=== PATIENT | female | born 1990 | race Caucasian/White ===

== ENCOUNTER 2022-08-23 16:48 | Outpatient (CLI) | payer OTHER, SELFPAY ==
--- NOTE | 2022-08-23 17:00 | CRLHL7_ITS ---
For Patients: As a result of the Cures Act, medical imaging exams and procedure reports are released immediately into your electronic medical record. You may view this report before your referring provider. If you have questions, please contact your health care provider. INDICATION: First trimester scan, establish dates. COMPARISON: None. TECHNIQUE: Real-time santos-scale imaging of the pelvis was performed. FINDINGS: Sonographic imaging demonstrates a single living intrauterine gestation. The embryo demonstrates a regular cardiac rate measuring 176 beats per minute. The embryo`s crown-rump length measurement of 2.7 cm corresponds to a gestational age of 9 weeks 4 days with a sonographic due date of March 24, 2023. There is a normal-appearing yolk sac measuring 4.1 mm. There are no gross abnormalities noted within the embryo at this early state of development. The placenta has not yet developed. The gestational sac has a normal appearance and there is no evidence of a perigestational hemorrhage. The amount of fluid within the sac appears appropriate for gestational age. The cervix is closed. The myometrium appears normal. The ovaries are of normal size. The right ovary measures 2.7 x 1.7 x 1.7 cm and the left ovary measures 4.8 x 3.2 x 3.4 cm. Single corpus luteum cyst of in the left ovary measuring 3.2 x 2.6 x 2.7 cm. There are no suspicious fluid collections noted in the cul-de-sac. IMPRESSION: Normal first trimester OB ultrasound exam. Gestational age calculated at 9 weeks 4 days with a sonographic due date of March 24, 2023. Dictated by Varghese Pop MD @ 08/23/2022 5:40:37 PM (Electronically Signed)
== END 2022-08-23 16:49 | disposition home or self-care (01) ==
LOC: US 16:49
PROVIDERS: PCP Nurse Practitioner Family; Visit Provider Physician Assistant
DX: Z34.91 Encounter for supervision of normal pregnancy, unspecified, first trimester (principal); Z3A.09 9 weeks gestation of pregnancy
CPT/HCPCS: 76817; 87491; 87591

== ENCOUNTER 2022-11-08 12:15 | Outpatient (CLI) | payer OTHER, SELFPAY ==
--- NOTE | 2022-11-08 12:15 | CRLHL7_ITS ---
For Patients: As a result of the Century Cures Act, medical imaging exams and procedure reports are released immediately into your electronic medical record. You may view this report before your referring provider. If you have questions, please contact your health care provider. OBSTETRICAL ULTRASOUND, 11/08/2022 VANESSA by LMP: 03/27/2023. GA: 20 w, 1 d. INDICATION: anatomy survey. FINDINGS: Cervix: Visualized. Technique: Transvaginal. Length of closed cervix: 4.4 cm. Placenta/cord: Anterior. Placenta tip to internal OS: 0.7 cm. Umbilical Cord: 3-vessel cord. Placenta insertion: Central. Amniotic Fluid: 4.9 cm SDP (greater than/equal to: 2- less than 8 cm). The placental edge is 0.7 cm from the internal os. SURVEY: Observed Structures Cerebellum: 2.1 cm, 21 w 0 d. Cisterna Magna: 6.4 mm. Nuchal Fold: 4.0 mm. Lateral Ventricle: 6.3 mm. CSP: Yes. Midline Falx: Yes. Choroid Plexus: Yes. Spine: Yes. Abdomen: Stomach: Yes. Abd Cord Insertion: Yes. Urinary Bladder: Yes. Kidneys: Yes. Diaphragm: Yes. Face: Nose/lips: Yes. Orbital view: Yes. Profile: Yes. Extremities: yes Vascular: Four-Chamber Heart: Yes. LVOT: Yes. RVOT: Yes. BPD: 4.8 cm. 20 w 3 d, 64 percent. HC: 18.1 cm. 20 w 3 d, 58 percent. AC: 15.2 cm. 20 w 3 d, 53 percent. FL: 32 cm. 20 w 0 d, 37 percent. FL/AC: 21 percent. HC/AC Ratio: 1.19. Heart rate: 142 beats per minute. age by this US: 20 w 3 d. VANESSA by this US: 03/25/2023. EFW: 342 g. Weight: 0 lbs, 12 oz. Percentile by VANESSA: 52 percent. IMPRESSION: 1. Single live intrauterine gestation. No gross anomalies visualized. 2. Low lying placenta. Rosa Isela Medina M.D. Diagnostic/Breast Radiologist [employer] [email or web address] Transcribed: 10:54 a.m. JR/Dictated by: Rosa Isela Medina MD @ 11/09/2022 6:58:00 AM (Electronically Signed)
== END 2022-11-08 12:16 | disposition home or self-care (01) ==
LOC: US 12:16
PROVIDERS: PCP Nurse Practitioner Family; Visit Provider Registered Nurse
DX: Z34.92 Encounter for supervision of normal pregnancy, unspecified, second trimester (principal); O44.42 Low lying placenta NOS or without hemorrhage, second trimester; Z3A.20 20 weeks gestation of pregnancy
CPT/HCPCS: 76805

== ENCOUNTER 2023-01-02 12:01 | Outpatient (CLI) | payer OTHER, SELFPAY ==
--- NOTE | 2023-01-02 12:15 | CRLHL7_ITS ---
For Patients: As a result of the Century Cures Act, medical imaging exams and procedure reports are released immediately into your electronic medical record. You may view this report before your referring provider. If you have questions, please contact your health care provider. INDICATION: Follow-up low lying placenta COMPARISON: 11/08/2022 TECHNIQUE: Real time santos scale imaging of the fetus was performed. FINDINGS: Transabdominal imaging: Sonographic imaging demonstrates a single living intrauterine gestation. Fetus demonstrates a regular cardiac rate of 148 beats per minute. Fetus has a vertex position. The placenta lies anteriorly without evidence of placenta previa. Amniotic fluid volume appears normal and there is a single deepest vertical pocket: 8.5 cm. LISSETTE 19.6 cm. Transvaginal imaging: Cervix is closed and measures 4.1 cm. Anterior placenta edge located 3.9 cm from the internal cervical os. IMPRESSION: No evidence of previa. Normal position of the anterior placenta. Dictated by Carson Walker MD @ 01/02/2023 3:04:48 PM (Electronically Signed)
== END 2023-01-02 12:02 | disposition home or self-care (01) ==
PROVIDERS: PCP Nurse Practitioner Family; Visit Provider Obstetrics & Gynecology
DX: O44.42 Low lying placenta NOS or without hemorrhage, second trimester (principal)
CPT/HCPCS: 76816; 76817; 86592

== ENCOUNTER 2023-03-01 13:34 | Outpatient (CLI) | payer OTHER, SELFPAY ==
[2023-03-02 12:28] LABS: Strep B DNA Probe Negative (Negative); Strep B Susceptibility Needed? No
== END 2023-03-01 13:35 | disposition home or self-care (01) ==
LOC: NFLDREF 13:35
PROVIDERS: PCP Nurse Practitioner Family; Visit Provider Registered Nurse
DX: Z34.93 Encounter for supervision of normal pregnancy, unspecified, third trimester (principal); Z3A.36 36 weeks gestation of pregnancy
CPT/HCPCS: 87081; 87653

== ENCOUNTER 2023-03-19 15:58 | Inpatient (IN) | payer OTHER, SELFPAY ==
[2023-03-19 16:17] VITALS: BP 122/84; PULSE 100; PULSE 99; O2SAT 98
[2023-03-19 16:23] VITALS: RESP 16; TEMP 36.8
[2023-03-19 17:58] LABS: Basophils Absolute Auto 0.01 K/uL (0.00-0.30); Basophils Percent Auto 0.1 % (0.0-3.0); Eosinophils Absolute Auto 0.03 K/uL (0.00-0.50); Eosinophils Percent Auto 0.3 % (0.0-7.0); Hematocrit 33.7 % (33.0-51.0); Hemoglobin* 11.5 gm/dL (12.0-16.0); Immature Granulocytes Abs Auto 0.09 K/uL (0.00-0.30); Lymphocytes Absolute Auto 1.88 K/uL (0.90-2.90); Lymphocytes Percent Auto 21.1 % (20-44); Mean Corpuscular HGB Conc 34 gm/dL (32-36); Mean Corpuscular Hemoglobin 32 pg (26-34); Mean Corpuscular Volume 94 fL (80-100); Neutrophils Percent Auto 72.5 % (42.0-72.0); Platelet Count* 227 K/uL (140-440); RDW Coefficient of Variation % 11.7 % (11.5-15.5); Red Blood Count 3.58 m/uL (4.00-5.20); Slide Review Reflex No; White Blood Count* 8.93 K/uL (4.50-11.00)
[2023-03-19] MEDS: LACTATED RINGERS 1000 ML 1,000 ML IV (18:05)
[2023-03-19 18:30] VITALS: BMI 26.0
--- NOTE | 2023-03-19 18:46 | P.LDBA_ITS ---
Subjective History of Present Illness Date Seen: 03/19/23 Narrative: Patient is being admitted to Labor and Delivery for elective IOL. She is a 32 year old at 38 6/7 weeks gestation. Her full history and physical was dictated by Dr. Salvador on 03/07/23. Please see this for details. Specific Issues/Plans Maternity T21: negative 1. Generalized anxiety disorder with panic. Buspirone 10 mg b.i.d. Lexapro 10 mg and hydroxyzine p.r.n. initiated 07/26/2022. Did not tolerate hydroxyzine. 2. Under weight, pre BMI 18.0 Appropriate weight gain throughout 3. Low-lying placenta, 0.7 cm placental tip to internal os - RESOLVED on 28 week scan Flu: received Tdap: 01/17 RSV: 02/01 H&P: 03/07/[address] Salvador OB - Problem Based A/P Additional Plan (1) Elective induction of labor planned: Status: Acute Plan 1. IOL started tonight, plan was to utilize misoprostol, due to concerns with tracing recommended placement of cook catheter and patient agreed. This was placed with 60mL on each balloon. Patient tolerated procedure well. If able plan will be to start IV oxytocin later tonight. 2. IVFs started due to tracing showing minimal variability and episodes of variable decelerations, currently improved. Will keep close monitoring. 3. GBS negative no need for antibiotic prophylaxis. 4. Discussed pain management options overnight, patient is interested. Otherwise planning epidural. 5. Dr. Salvador will be updated, and will take over in am. OB Exam Physical Exam Vital signs: Temp Pulse Resp BP Pulse Ox 98.3 F 100 16 122/84 98 03/19/23 16:23 03/19/23 16:17 03/19/23 16:23 03/19/23 16:17 03/19/23 16:17 Detailed Labor and Delivery Exam Patient Gravid: Yes Dilation (cm): 1 Effacement (%): 60 Cervix position: mid Consistency: soft Tachysystole: No Contraction intensity: Mild Comments: Uterine irritability Fetus (Single) Station: -3 Amniotic Membrane Status: intact Heart Rate Baseline: 150 Monitor Accelerations: Present Monitor Decelerations: Variable Tin Pot Operator Variability: Moderate (6-25) (Upon admission variability minimal, with episodes of variable decelerations.)
[2023-03-19 19:28] VITALS: BP 124/81; PULSE 73; PULSE 74; RESP 16; TEMP 36.4; O2SAT 99
[2023-03-19 22:24] LABS: Amnisure Rom* Negative
[2023-03-19] MEDS: LACTATED RINGERS 1000 ML 1,000 ML 125 ML IV (22:43)
[2023-03-19 22:45] VITALS: BP 108/61; PULSE 68
[2023-03-19] MEDS: MORPHINE 10 MG/ML inj IM (23:16)
[2023-03-19] MEDS: hydrOXYzine pamoate 25 MG CAPSULE 100 MG PO (23:17)
[2023-03-20] VITALS (78 sets, daily range): BP systolic 104–136; BP diastolic 56–86; PULSE 68–115; RESP 12–16; TEMP 36.6–38.1; O2SAT 96–99
[2023-03-20] MEDS: LACTATED RINGERS 1000 ML 1,000 ML 125 ML IV (03:57)
[2023-03-20] MEDS: OXYTOCIN 30 unit/500 ML in NS 30 UNIT/500 ML BAG IVPB (06:50)
--- NOTE | 2023-03-20 07:41 | P.OBPN_ITS ---
Subjective Time Seen by Provider: 07:30 Date Seen: 03/20/23 Narrative: Sonam is resting comfortably in bed. She is sleepy as she did not get any rest last night due to position changes for resuscitation. NST reviewed from overnight. Upon admission, NST was noted to have multiple va riable decelerations and minimal variability. resuscitation was assessed sedated prior to induction of labor. She was repositioned and given an IV bolus. Improvement in NST noted. Decision was made to begin the cervical ripening process with cook catheter instead of misoprostol due to decelerations. Overnight, NST continues to have intermittent variable decelerations and periods of minimal variability. Some of variables were deep, down to the 60s. At 0327, there was a prolonged 3.5 minutes deceleration down to the 60s. Repositioning and IV bolus given at that time with recovery. Given this, pitocin was unable to be started overnight. Cook cath was removed at 0630 and cervical exam per RN was 3.5/80/-3. Pitocin was able to be started at 0650. Sonam reports that she note her contractions but they're not frequent or strong. Discuss with her that the plan is to continue titrating pitocin to get her to contract adequately to make cervical change. I will assess for appropriateness of AROM after 2-3 hours on pitocin. She understands and agrees with the plan of care. NST currently: 120s bpm,moderate variability, +accel, intermittent variables. Objective Vital Signs: Last Vital Signs Temp 98.5 F 03/20/23 07:28 Pulse 86 03/20/23 07:28 Resp 16 03/20/23 07:28 BP 116/74 03/20/23 07:28 Pulse Ox 96 03/20/23 03:32 Contractions Contraction intensity: Mild Assessment Station: -3 Heart Rate Baseline: 150 Monitor Accelerations: Present Monitor Decelerations: Variable
--- NOTE | 2023-03-20 10:27 | P.OBPN_ITS ---
Subjective Time Seen by Provider: 09:45 Date Seen: 03/20/23 Objective Vital Signs: Last Vital Signs Temp 98.5 F 03/20/23 09:57 Pulse 77 03/20/23 09:53 Resp 16 03/20/23 09:57 BP 120/77 03/20/23 09:53 Pulse Ox 96 03/20/23 03:32 Pelvic Exam Dilation (cm): 3.5 Effacement (%): 75 Station: ballotable Contractions Contraction intensity: Mild Assessment Assessment: induction ongoing Station: -4 Status: Category ll Heart Rate Baseline: 150 Virtualization Consultant Variability: Moderate (6-25) Monitor Accelerations: Present Monitor Decelerations: Variable Plan Plan: - Unable to AROM as head was ballotable. Will continue to titrate pitocin and reassess in 3-4 hours.
[2023-03-20] MEDS: BUSPIRONE 10 MG TABLET 5 MG PO ×2 (10:36→19:58)
[2023-03-20] MEDS: ESCITALOPRAM 10 MG TABLET PO (10:37)
[2023-03-20] MEDS: LACTATED RINGERS 1000 ML 1,000 ML 1200 ML IV ×2 (11:59→12:48)
[2023-03-20] MEDS: ROPIVACAINE 0.2% 100 ml 100 ML 12 MG EPIDURAL ×2 (12:44→19:23)
[2023-03-20] MEDS: LIDOCAINE 2% (PF) 5 ML VIAL EPIDURAL ×2 (12:44→19:24)
--- NOTE | 2023-03-20 12:50 | P.ANBPRC_ITS ---
PFSH PFS Surgical History History of wisdom tooth extraction ?K08.409 - Partial loss of teeth, unspecified cause, unspecified class (ICD- 10) History of removal of skin mole ?Z98.890 - Other specified postprocedural states (ICD-10) ?Z87.2 - Personal history of diseases of the skin and subcutaneous tissue (ICD-10) Family History Maternal Grandfather Coronary artery disease High blood pressure High cholesterol Diabetes Maternal Grandmother Thyroid disease High cholesterol Other Family history of anxiety disorder Family history of depression Social History What is your current living situation?: I presently have a place to live Problems where you live: no known problems In the past 12 months, utilities in danger of being shut off: no In past 12 months, lack of transportation kept you from medical appts, meetings, work, or getting things needed for daily living: no In the past 12 mos, have been you worried that your food would run out before you had money to buy more?: never true In the past 12 mos, the food you bought just didn't last and you didn't have money to buy more?: never true Smoking Status: Never smoker How often does anyone, including family, friends and others, physically hurt you : never How often does anyone, including family, friends and others, insult or talk down to you: never How often does anyone, including family, friends and others, threaten you with harm: never How often does anyone, including family, friends and others, scream or curse at you: never Little interest or pleasure in doing things: not at all Feeling down, depressed, or hopeless: several days Meds Home Medications and Allergies Home Medications Medication Instructions Recorded Confirmed Type docosahexaenoic acid 200 mg 200 mg PO DAILY 11/08/22 03/19/23 History capsule ( DHA) magnesium 1 tab PO DAILY 03/19/23 03/19/23 History Allergies Allergy/AdvReac Type Severity Reaction Status Date / Time almond oil Allergy Severe Rash Verified 03/19/23 16:54 coconut oil Allergy Severe Rash Verified 03/19/23 16:54 Penicillins Allergy Rash Verified 03/19/23 16:54 Results Labs Labs: Laboratory Results - last 24 hr 03/19/23 03/19/23 17:52 22:05 WBC 8.93 RBC 3.58 L Hgb 11.5 L Hct 33.7 MCV 94 MCH 32 MCHC 34 RDW Coeff of Tom 11.7 Plt Count 227 Neut % (Auto) 72.5 H Lymph % (Auto) 21.1 [place]ockley % (Auto) 5.0 Eos % (Auto) 0.3 Baso % (Auto) 0.1 Neut # (Auto) 6.50 Lymph # (Auto) 1.88 [place] # (Auto) 0.40 Eos # (Auto) 0.03 Baso # (Auto) 0.01 Abs Immat Gran (auto) 0.09 Imm/Tot Granulo (auto) 1.0 Membrane Rupture Negative Blood Type A Positive Antibody Screen NEGATIVE Vital Signs Vital Signs: Last Vital Signs Temp 98.6 F 03/20/23 11:32 Pulse 78 03/20/23 12:49 Resp 16 03/20/23 11:32 BP 117/61 03/20/23 12:49 Pulse Ox 98 03/20/23 12:38 Weight: 73.255 kg Height: 167.64 cm Anesthesia Procedures Epidural Insertion Patient Location: OB Start Time: 12:30 Stop Time: 13:00 Start Date: 03/20/23 Stop Date: 03/20/23 Reason for Block: primary anesthetic Patient Position: sitting Performed By: Sung Elise Preanesthetic Checklist: IV checked, risks and benefits discussed, surgical consent, monitors and equipment checked, pre-op evaluation, timeout performed a nd anesthesia consent Prep: chlorhexidine gluconate Monitoring: blood pressure monitoring, sales agent casualty insurance, continuous pulse oximetry and heart rate Approach: midline Vertebral Space: lumbar (1-5) Needle Type: Tuohy needle Injection Technique: continuous catheter (catheter) Needle gauge: 17 Needle Length (cm): 10 cm Needle Insertion Depth (cm): 5 Catheter Gauge: 19 Catheter Type: multi-orifice Catheter at skin depth (cm): 10 Test Dose Result: negative and lidocaine 1.5% with epinephrine 1 to 200,000
--- NOTE | 2023-03-20 19:25 | P.OBPN_ITS ---
Subjective Time Seen by Provider: 19:25 Date Seen: 03/20/23 Objective Vital Signs: Last Vital Signs Temp 99.1 F 03/20/23 17:24 Pulse 90 03/20/23 19:19 Resp 16 03/20/23 17:24 BP 107/59 L 03/20/23 19:19 Pulse Ox 98 03/20/23 19:20 Pelvic Exam Dilation (cm): 6 Effacement (%): 90 Station: -1 Contractions Monitor mode: Internal Contraction Frequency: Q2 minutes Contraction pattern: Regular Contraction intensity: Strong/Firm Assessment Assessment: active labor Station: -1 Amniotic Membrane Status: AROM (1330. Copious amount of clear fluid ) Status: Category ll Heart Rate Baseline: 150 Halfway Variability: Moderate (6-25) Monitor Accelerations: Present Monitor Decelerations: Variable Plan Plan: Throughout the day, strip had been category I. Continued to be Cat I even after AROM at 1330. At 1745 there were more recurrent variables and variability decreased. She was repositioned and given IV fluid bolus. The variables were progressively deeper so pitocin was halved and eventually turned off. She was internalized at 1910. She was 5/90/-1 with rapid change to 6/90/-1 after I completed placing the internals. Sonam was having significant more pain so anesthesia was called to reassess her epidural. Variables resolved with cessation of pitocin. Will keep pitocin off until pain is better controlled and NST is more reassuring.
[2023-03-20] MEDS: LACTATED RINGERS 1000 ML 1,000 ML 1025 ML IV (19:56)
[2023-03-20] MEDS: fentaNYL 100 MCG/2 ML inj EPIDURAL (20:52)
--- NOTE | 2023-03-20 22:25 | PC.NURSE ---
RN reported elevated temp to . to order 24 hours of antibiotics. Will start as soon as available.
[2023-03-20] MEDS: CEFAZOLIN 2 GM in 0.9 % SODIUM CHLORIDE Mini-bag 100 ML IVPB (22:47)
--- NOTE | 2023-03-20 23:03 | W.PM.VAGDEL1 ---
Procedure Delivery date: 03/20/23 Procedure Done: Global Procedure Details: Sonam is a 32 year-old now P1 admitted on 03/19/2023 at 38 Weeks, 6 Days gestation for elective induction of labor. She underwent cervical ripening with cook catheter. AROM occurred at 1330 on 03/20/23 with copious amount of clear fluid. Labor Analgesia: Epidural Pitocin: Yes Labor onset: 03/20/2023 at 1911. Complete: 03/20/2023 at 2110. Pushin03/20/2023 at 2118. heart tones during second stage were: Cat II with deep variables to the 70-60s with pushing. Spontaneous recovery after contraction with moderate variability in between contractions. Excellent descent with maternal efforts. At 2142 a viable male infant delivered in vertex AO presentation over intact perineum via spontaneous vaginal delivery. The was placed on maternal abdomen. Cord was clamped and cut immediately for resuscitation. Nose and mouth were bulb suctioned. weight pending. 7 at 1 minute and 9 at 5 minutes. Shoulder dystocia: No. Nuchal cord: x4. Easily reduced after delivery. Placenta delivered spontaneously and complete at 2146 with a 3 vessel cord. Laceration(s): Left labia - hemostatic nor repair needed. No perineal lacerations. Blood loss: 50 mL. Blood loss measurement type: Estimated Sponge and needles counts are correct. Specimen: none Cord gases obtained due to deep variables during the second stage of labor and nuchal cord x 4. Mother and infant were stable after delivery. Infant's name: Neftaly (STAR) The patient is planning on breast feeding.
[2023-03-20] MEDS: GENTAMICIN 325 MG in 0.9 % SODIUM CHLORIDE 100 ml 100 ML 108.13 MG IVPB (23:54)
[2023-03-21] VITALS (9 sets, daily range): BP systolic 98–128; BP diastolic 65–79; PULSE 72–99; RESP 16–18; TEMP 36.3–37.3; O2SAT 96–99
[2023-03-21] MEDS: IBUPROFEN 600 MG TABLET PO ×3 (01:12→14:39)
[2023-03-21 06:21] LABS: Hemoglobin* 10.9 gm/dL (12.0-16.0)
[2023-03-21] MEDS: CEFAZOLIN 2 GM in 0.9 % SODIUM CHLORIDE Mini-bag 100 ML IVPB ×3 (06:48→22:33)
[2023-03-21] MEDS: DOCUSATE SODIUM 100 MG CAPSULE PO (07:33)
[2023-03-21] MEDS: SODIUM CHLORIDE 0.9 % (FLUSH) 10 ML SYRINGE IVF ×3 (07:34→15:18)
--- NOTE | 2023-03-21 07:45 | PM.OBPNVD1 ---
OB - PN:Subj Subjective Time Seen by Provider: 07:45 Date Seen: 03/21/23 Interval history: Sonam is a 32 y.o. who was admitted to L & D for IOL.? She had an NVD complicated by chorioamnionitis after.? ? ? Narrative: The patient feels well.? The pain is well controlled with current medications.? She has no new complaints.? She is breast feeding and reports things are going well.? the patient has done well.? Vitals have been stable.? She was noted to have a fever shortly after delivery, but she has remained afebrile since about midnight.? Antibiotics ordered at that time. Has a good appetite, is tolerating a general diet.? She is voiding without difficulty.? She is passing gas and has not had a bowel movement.? She is ambulating and denies any dizziness.? Has Small amount of rubra lochia.? OB - PN: Obj Exam Physical Exam: Vital signs: Temp Pulse Resp BP Pulse Ox O2 Del Method 97.7 F 75 16 124/70 98 Room Air 03/21/23 04:50 03/21/23 04:50 03/21/23 04:50 03/21/23 04:50 03/21/23 04:50 03/21/23 04:50 Narrative: GENERAL APPEARANCE:? normal affect, alert, no distress? MOOD:? appropriate? HEENT: normocephalic, neck supple, full ROM? CHEST:? Symmetrical chest wall movement.? Normal respiratory effort.? Clear to auscultation ? HEART:? regular rate and rhythm? ABDOMEN:? soft, non-tender. Uterine fundus is firm, at Umbilicus, Midline and is appropriate for the stage of recovery.? Bowel sounds present.? PERINEUM:? mild edema of the perineum, there is a left labial laceration, not repaired, that is healing well.? EXTREMITIES:? normal and trace edema? OB - PN: Obj Data Labs Labs: Laboratory Results - last 24 hr 03/21/23 06:05 Hgb 10.9 L OB - PN: A/P Delivery Assessment and Plan (1) NVD (normal vaginal delivery): Status: Acute (2) Lactating mother: Status: Acute (3) Chorioamnionitis: Status: Acute (4) Depression: Status: Acute (5) Generalized anxiety disorder with panic attacks: Status: Chronic Plan day: 1 Plan: routine care Comments: G 1 P 1 status post NVD complicated by chorioamnionitis ?? 1.? Continue route PP cares? 2.? .? May see if desired? 3.? Anticipate discharge home tomorrow? 4. Chorioamnionitis. Continue antibiotics x 24 hours post fever as previously ordered.
[2023-03-21] MEDS: ESCITALOPRAM 10 MG TABLET PO (09:05)
[2023-03-21] MEDS: BUSPIRONE 10 MG TABLET 5 MG PO ×2 (09:05→22:34)
--- NOTE | 2023-03-21 12:35 | PM.ANPOST ---
Post Anesthesia Note Post Anesthesia Note Patient seen: Inpatient Respiratory Status: adequate Cardiovascular Status: adequate Mental Status: baseline Pain: adequate Temp: baseline Anesthetic awareness: N/A Complications: none Follow care: none
[2023-03-22] MEDS: IBUPROFEN 600 MG TABLET PO ×2 (00:47→08:33)
--- NOTE | 2023-03-22 07:37 | P.DS_ITS ---
DS: Providers Provider Date Seen: 03/22/23 Date of admission: 03/19/23 15:58 Primary care physician: Dulce Bañuelos CNP Admitting Clinician: Tatyana Hill MD Attending Physician on discharge: Maura Farmer CNM DS: Diagnosis Discharge Diagnosis (1) care and examination immediately after delivery: Status: Acute (2) Lactating mother: Status: Acute (3) Chorioamnionitis: Status: Acute Problem details: Post-delivery, off antibiotics x12 hours. Afebrile since immediately after delivery Exam Narrative: Exam Narrative: GENERAL APPEARANCE:? normal affect, alert, no distress MOOD:? appropriate CHEST:? clear to auscultation HEART:? regular rate and rhythm ABDOMEN:? soft, non-tender the uterine fundus is 1 below Umbilicus, Midline and is appropriate for the stage of recovery. PERINEUM:? mild edema of the perineum, there is a labial laceration that is healing well. EXTREMITIES:? normal and no edema Const: Vital Signs, click to edit/add: Vital Signs - 24 hr 03/21/23 08:28 03/21/23 11:56 03/21/23 16:53 Temperature 97.3 F L 97.8 F 97.7 F Pulse Rate [Blood Pressure Cuff] 72 81 78 Respiratory Rate 18 16 16 Blood Pressure [Le ft Arm] 117/75 115/74 128/77 Pulse Oximetry 98 96 98 Oxygen Delivery Me thod Room Air Room Air Room Air 03/21/23 20:35 03/21/23 23:55 Temperature 98.1 F 98.0 F Pulse Rate [Blood Pressure Cuff] 78 78 Respiratory Rate 16 18 Blood Pressure [Le ft Arm] 112/79 98/65 Pulse Oximetry 98 99 Oxygen Delivery Me thod Room Air Documenting provider has reviewed patient's vital signs: yes OB - DS: Summary Hospital Course Hospital Course: Sonam is a 32 y.o. G 1 P 1 who was admitted to L & D for elective induction of labor. ?She had a NVD that was complicated by chorioamnionitis that was diagnosed immediately after delivery. The patient feels well. ?The pain is well controlled with current medications. ?She has no new complaints. ?She is breast feeding and reports things are going well. the patient has done well.? Vitals have been stable.? She has remained afebrile for >24 hours.? Has a good appetite, is tolerating a general diet. ?She is voiding without difficulty.? She is passing gas and has had a bowel movement.? She is ambulating and denies any dizziness.? Has small amount of rubra lochia. She is undecided about prevention. Problems: Chorio plan: Discharge home with baby. Follow up in 2 weeks and 6 weeks. , may see if needed Hgb 10.9. Chorioamnionitis. Abrile for >24 hours. Antibiotics completed last evening. Instructed to continue to monitor for fever or symptoms at home. Peripartum Data delivery method: Vaginal Laceration description: Labial complications: other (Chorioamnionitis ) [place] Gender: Male Discharge Plan: Home Status at Discharge Functional status at discharge: independent ambulation Overall status at discharge: patient is progressing back to baseline Time Spent with Patient Time attestation: Total time spent providing and/or coordinating discharge services: Discharge Plan Discharge Disposition: Home, Self-Care Date of Admission: 03/19/23 15:58 Attending Provider on Discharge: Maura Farmer Primary Care Provider: Dulce Bañuelos Condition: Stable Anticipated Discharge Date/Time: 03/22/23 12:00 Discharge Medications: New acetaminophen 500 mg Tablet 1,000 mg PO Q6H PRNQty: 0 0RF docusate sodium 100 mg Capsule 100 mg PO DAILY Qty: 90 0RF ibuprofen 600 mg Tablet 600 mg PO Q6H PRNQty: 60 0RF Continued hydroxyzine pamoate [Vistaril] 25 mg capsule 25 mg PO QID PRN (Reason: anxiety) Qty: 60 1RF cgwgnleoyh-uzdmkxoorampg-rdbv 50-325-40 mg tablet 1 tab PO Q6H PRN (Reason: pain) Qty: 14 1RF DHA 200 mg capsule 200 mg PO DAILY magnesium Tablet 1 tab PO DAILY escitalopram oxalate [Lexapro] 10 mg tablet 10 mg PO QDAY Qty: 90 3RF buspirone 5 mg tablet 10 mg PO BID 90 Days Qty: 360 0RF Discontinued ondansetron HCl 4 mg tablet 4 mg PO Q6H PRN (Reason: nausea and vomiting) Qty: 30 1RF Discharge Orders: Discharge Order (Routine); Ordered 03/22/23 Ordered By: Maura Farmer Patient Education: OB Over the Counter Medication Information, OB Vaginal/Breast Feeding Additional Instructions: Discharge instructions were reviewed with the patient including signs and symptoms of infection and home going medications Nothing vaginally for 6 weeks: no tampons or intercourse Off Work or School for 6 weeks 2-week visit: discuss infant feeding concerns, review control options and screen for anxiety/depression. 6-week visit for an annual exam. consultation services are available to all mothers and babies for the first year after delivery.? To make an appointment, please call [phone]. Activity Level: Activity as Tolerated Discharge Diet: Regular Follow Up Appointments: [facility] [Provider Group] Forms: Virtual DBSth Info Instructions
[2023-03-22 08:21] VITALS: BP 122/86; PULSE 72; RESP 16; TEMP 36.5; O2SAT 98
[2023-03-22] MEDS: DOCUSATE SODIUM 100 MG CAPSULE PO (08:33)
[2023-03-22] MEDS: ESCITALOPRAM 10 MG TABLET PO (08:35)
[2023-03-22] MEDS: BUSPIRONE 10 MG TABLET 5 MG PO (08:35)
== END 2023-03-22 10:38 | disposition home or self-care (01) | DRG 805 ==
PROVIDERS: Admitting Provider Obstetrics & Gynecology; PCP Nurse Practitioner Family; Visit Provider Obstetrics & Gynecology
DX: O76 Abnormality in fetal heart rate and rhythm complicating labor and delivery (principal); O41.1230 Chorioamnionitis, third trimester, not applicable or unspecified; Z37.0 Single live birth; O70.0 First degree perineal laceration during delivery; O99.344 Other mental disorders complicating childbirth; F41.1 Generalized anxiety disorder; F41.0 Panic disorder [episodic paroxysmal anxiety]; Z3A.38 38 weeks gestation of pregnancy
CPT/HCPCS: 01967; 36415; 59200; 84112; 85018; 85025; 86850; 86900; 86901; A9270; C1726; J0690; J1580; J2270; J2371; J2795; J3010; J7120

== ENCOUNTER 2023-03-24 14:45 | Outpatient (CLI) | payer OTHER, SELFPAY ==
--- NOTE | 2023-03-24 17:00 | W.PM.LAC.MC ---
Consult Note - Mom Date of Visit Date of visit: 03/24/23 knowledge management consultant: Virginia Paz Visit Code: Visit Patient's Information Phone number: [phone] : 1 Para: 1 Allergies almond oil Allergy (Severe, Verified 03/19/23 16:54) Rash coconut oil Allergy (Severe, Verified 03/19/23 16:54) Rash Penicillins Allergy (Verified 03/19/23 16:54) Rash Mother's Medical History: depression/anxiety Delivery Information Delivery type: Vaginal Weeks Gestation: 39.0 Gestational Age: AGA Weight: 3.18 kg Discharge Weight: 3.01 kg Baby's Information Baby's Age at Visit: 4 days Baby's Provider or Clinic: Dr. Crabtree Jaundice: Yes (bili drawn at NB visit) Reason for Consult Reason for Consult: painful latch Past Experience Past Experience: No Current Frequency of Day Feedings: POC are trying to wake baby every two hours around the clock Both Breasts: Yes (mom offers) Suck: strong when he's awake Latch: fairly wide Length of Time: 5 - 7 minutes on one side Pumping Pumping: No Supplementing EMB Supplement: No Formula Supplement: No Baby Elimination Number of Wet Diapers a Day: increasing Number of BM a Day: increasing, still dark but not meconium Breast/Nipple Condition Breast Information: WNL Engorgement: No (full) Maternal Nipple Condition - Left: Short and Cracking/ Fissures Maternal Nipple Condition - Right: Short and Cracking/ Fissures Sore Nipples: Yes Onsite Pre-Feed weight: 3.094 kg Post-Feed weight: 3.168 kg Milk Transferred (mL): 74 Assessments/Interventions Assessments/Interventions: Met with mom and this now 4 day old ex- term AGA baby for consult. Mom reports nursing has been painful d/t some nipple damage, especially on the right. POC have been trying to wake baby every two hours to nurse. They state he's very sleepy at breast, mom can usually only get him to nurse 5 - 7 minutes on one side, and they have to constantly bother him. She reports her milk started to come in yesterday and her breasts feel full but not engorged. She hasn't started pumping or offering any supplement yet. Breasts are WNL- symmetrical with rounded lower quadrants, intramammary distance < 1.5 inches. Nipples are a little short but everted; they don't flatten or invert on compression. Both with damage to the center, the left is a little more scabbed. Baby has gained 84 grams since D/C and is now 3% below BW at 4 DOL. POC deny any caput/cephalohematoma at delivery and report he seems to have equal ROM when turning his head and moving his extremities. His palate is WNL. His upper frenulum is a little tight as the gums neftaly when his upper lip is flanged. He has a strong suck on a finger and the tongue extends past the gumline; the tongue also has good lateral movement. The lower frenulum might be a little anterior. Mom latched baby to the right side in the football hold and the latch appeared wide, after about 10 seconds mom was comfortable. With a few position changes to turn baby more into her, aim nipple to nose, and bring him in more quickly when he opened wide mom was able to get a little deeper latch and stated it was more comfortable. Baby nursed with some stimulation for 7 - 10 minutes. When he started to pacify, mom was shown how to protect her nipple while taking him off and she offered the right side. Baby latched and mom was comfortable, but he was pretty sleepy and only nursed for a few minutes. Nipples were not misshapen when he had come off. He transferred 74 ml! Attempted to show POC a little exercise to possibly help baby extend his tongue a little further but he was too sleepy. Worked with mom for a few minutes on hand expression so she felt more comfortable doing it at home. Plan: 1. OK to stop waking baby every two hours. Suggested mom watch for feeding cues (but if he doesn't show cues to nurse him at least every three hours). Suspect he may nurse more aggressively if they wait until he's more alert. Continue to offer both sides and work to keep him active at the breast. 2. No medical need to supplement. 3. No medical need to pump. Suggested hand expression/Haakaa/a pump before nursing if he's having difficulty latching b/c she's so full, or for a few minutes after nursing if she's uncomfortable. 4. Suggested mom do a quick saline rinse after every nursing session, then apply her milk or a nipple balm to help with the healing process. B/C she mentioned several times that the rubbing of her bra or a t-shirt was really uncomfortable, gave her some breast shells with instruction not to use overnight or if they caused swelling of the areola. 5. Suggested they try the exercise with baby 3 - 5 times/day for the next several days/week. 6. Will f/u with mom by phone on 03/31. TSB results were reviewed by PCP and mom will schedule a 2 week WCC. Meds Home Medications and Allergies Home Medications Medication Instructions Recorded Confirmed Type docosahexaenoic acid 200 mg 200 mg PO DAILY 11/08/22 03/19/23 History capsule ( DHA) magnesium 1 tab PO DAILY 03/19/23 03/19/23 History Allergies Allergy/AdvReac Type Severity Reaction Status Date / Time almond oil Allergy Severe Rash Verified 03/19/23 16:54 coconut oil Allergy Severe Rash Verified 03/19/23 16:54 Penicillins Allergy Rash Verified 03/19/23 16:54
== END 2023-03-24 14:46 | disposition home or self-care (01) ==
PROVIDERS: PCP Nurse Practitioner Family; Visit Provider Obstetrics & Gynecology
DX: Z39.1 Encounter for care and examination of lactating mother (principal)
CPT/HCPCS: G0463

== ENCOUNTER 2024-08-15 13:54 | Outpatient (CLI) | payer OTHER, SELFPAY ==
--- NOTE | 2024-08-15 14:00 | CRLHL7_ITS ---
For Patients: As a result of the Century Cures Act, medical imaging exams and procedure reports are released immediately into your electronic medical record. You may view this report before your referring provider. If you have questions, please contact your health care provider. LMP: 06/22/2024. VANESSA by LMP: 03/29/2025. GA: 7w, 5d. INDICATION: Dating. TECHNIQUE: Transvaginal 1st trimester obstetric imaging was obtained. CRL: 0.7 cm, 6w 4d, VANESSA 04/06/2025. FHR: 116 bpm. GESTATIONAL SAC: 1.0 cm, <10%. YOLK SAC: 3.4 mm, appears within normal limits. RIGHT OVARY: 4.0 x 2.6 x 2.8 cm, CL. LEFT OVARY: 3.2 x 1.7 x 2.1 cm. IMPRESSION: 1. Single living intrauterine measuring 6 weeks 4 days and sonographic due date 04/06/2025. heart rate is lower limits of normal at 116 beats per minute. Some irregular morphology of the decidual reaction. Short-term follow-up in 2-3 weeks recommended. 2. Subchorionic hemorrhage measures 1.9 x 0.8 x 1.0 cm. Carson Walker M.D. Diagnostic Radiologist [email or web address] bM/Dictated by: Carson Walker MD @ 08/15/2024 4:19:00 PM (Electronically Signed)
== END 2024-08-15 13:55 | disposition home or self-care (01) ==
LOC: US 13:55
PROVIDERS: PCP Nurse Practitioner Family; Visit Provider Physician Assistant
DX: Z34.91 Encounter for supervision of normal pregnancy, unspecified, first trimester (principal); O20.9 Hemorrhage in early pregnancy, unspecified; Z3A.01 Less than 8 weeks gestation of pregnancy
CPT/HCPCS: 76817; 83021; 86592; 86703; 86704; 86706; 86762; 86787; 86803; 86850; 87086; 87340; 87491; 87591; 87624; 88142

== ENCOUNTER 2024-08-29 13:41 | Outpatient (CLI) | payer OTHER, SELFPAY ==
--- NOTE | 2024-08-29 13:45 | CRLHL7_ITS ---
For Patients: As a result of the Cures Act, medical imaging exams and procedure reports are released immediately into your electronic medical record. You may view this report before your referring provider. If you have questions, please contact your health care provider. OB ULTRASOUND FIRST TRIMESTER INDICATION: Follow-up viability. TECHNIQUE: Real time santos scale imaging of the fetus was performed. Transvaginal. LMP: 06/22/2024. VANESSA by LMP: 03/30/2024. VANESSA by US: 04/06/2024. GA: 8 w, 4 d. Previous US: Yes 08/15/2024. VANESSA by US: 04/06/2024. GA: 8 w, 4 d. CRL: 1.8 cm. 8 w 2 d. VANESSA: 04/08/2024. FHR: 180 BPM. Gestational sac: 1.7 cm. Yolk sac: 5.9 mm. Right ovary: Within normal limits. 3.4 x 2.9 x 3.1 cm. . CL. Left ovary: Within normal limits. 3.3 x1.8 x 2.0 cm. IMPRESSION: 1. Single living intrauterine gestation measuring 8 weeks 2 days and sonographic due date 04/08/2025. 2. Small gestational sac measuring 6 weeks 4 days. 3. Enlarged yolk sac with an average measurement of 5.9 mm although 1 measurement is 7.2 mm. Increased risk of spontaneous miscarriage or anomalies suggested. Carson Walker M.D. Diagnostic Radiologist [email or web address] CAROLINE/russ JR/Dictated by: Carson Walker MD @ 08/30/2024 6:18:00 AM (Electronically Signed)
== END 2024-08-29 13:42 | disposition home or self-care (01) ==
LOC: US 13:41
PROVIDERS: PCP Nurse Practitioner Family; Visit Provider Physician Assistant
DX: Z34.91 Encounter for supervision of normal pregnancy, unspecified, first trimester (principal); O20.0 Threatened abortion; Z3A.08 8 weeks gestation of pregnancy
CPT/HCPCS: 76817

== ENCOUNTER 2024-09-09 13:39 | Outpatient (CLI) | payer OTHER, SELFPAY ==
--- NOTE | 2024-09-09 13:45 | CRLHL7_ITS ---
For Patients: As a result of the Century Cures Act, medical imaging exams and procedure reports are released immediately into your electronic medical record. You may view this report before your referring provider. If you have questions, please contact your health care provider. INDICATION: KNOWN MISCARRIAGE, CONTINUED BLEEDING 10 DAYS COMPARISON: 08/29/2024, 08/15/2024 TECHNIQUE: Real-time santos-scale imaging of the pelvis was performed transvaginal. FINDINGS: Intrauterine gestational sac measures 2.3 cm, 7 weeks 2 days. pole crown-rump length measures 1.8 cm, 8 weeks 2 days. No heart tones. No subchorionic hemorrhage. No pelvic free fluid. Corpus luteal cyst right ovary. Left ovary unremarkable. IMPRESSION: Nonviable intrauterine gestation with pole measuring 8 weeks 2 days. No subchorionic hemorrhage. Dictated by Carson Walker MD @ 09/10/2024 6:54:46 AM (Electronically Signed)
== END 2024-09-09 13:40 | disposition home or self-care (01) ==
LOC: US 13:40
PROVIDERS: PCP Nurse Practitioner Family; Visit Provider Physician Assistant
DX: O03.9 Complete or unspecified spontaneous abortion without complication (principal)
CPT/HCPCS: 76817

== ENCOUNTER 2024-09-30 10:16 | Outpatient (CLI) | payer OTHER, SELFPAY | END 2024-09-30 10:17 | disposition home or self-care (01) | LOC: NFLDREF 10-01 15:50 | PROVIDERS: PCP Nurse Practitioner Family; Referring Provider Nurse Practitioner Family; Visit Provider Obstetrics & Gynecology | DX: O03.9 Complete or unspecified spontaneous abortion without complication (principal) | CPT/HCPCS: 84702 ==

== ENCOUNTER 2024-12-03 12:12 | Outpatient (CLI) | payer OTHER, SELFPAY ==
--- NOTE | 2024-12-03 12:15 | CRLHL7_ITS ---
For Patients: As a result of the Cures Act, medical imaging exams and procedure reports are released immediately into your electronic medical record. You may view this report before your referring provider. If you have questions, please contact your health care provider. OB ULTRASOUND INDICATION: Dating and viability. TECHNIQUE: Real time grayscale imaging of the fetus was performed. Transvaginal. Transvaginal imaging performed to better demonstrate the endometrium and ovaries. LMP: 10/09/2024. VANESSA by LMP: 07/16/2025. GA: 7 w, 6 d. Previous US: No. CRL: 1.05 cm. 7 w 1 d. VANESSA: 07/21/2025. FHR: 142 BPM. Gestational sac: 2.75 cm. Appears within normal limits. Yolk sac: 3.4 mm. Appears within normal limits. Right ovary: 4.6 x 3.4 x 3.8 cm. CL. Left ovary: 3.5 x 1.4 x 1.9 cm. COMMENTS: Size 5 days behind dates. Recent miscarriage. Follow-up to confirm dates. IMPRESSION: 1. Single living intrauterine measures 7 weeks 1 day with sonographic due date 07/21/2025. 2. Corpus luteal cyst right ovary. Carson Walker M.D. Diagnostic Radiologist [email or web address] CAROLINE/basilio richmond/Dictated by: Carson Walker MD @ 12/03/2024 1:05:00 PM (Electronically Signed)
== END 2024-12-03 12:13 | disposition home or self-care (01) ==
LOC: US 12:12
PROVIDERS: PCP Nurse Practitioner Family; Visit Provider Physician Assistant
DX: O34.11 Maternal care for benign tumor of corpus uteri, first trimester (principal); N83.11 Corpus luteum cyst of right ovary; Z3A.01 Less than 8 weeks gestation of pregnancy
CPT/HCPCS: 76817; 83021; 86592; 86703; 86704; 86706; 86762; 86787; 86803; 86850; 87086; 87340

== ENCOUNTER 2024-12-03 13:23 | Outpatient (CLI) | payer OTHER, SELFPAY | END 2024-12-03 13:24 | disposition home or self-care (01) | PROVIDERS: PCP Nurse Practitioner Family; Visit Provider Physician Assistant | DX: Z34.91 Encounter for supervision of normal pregnancy, unspecified, first trimester (principal); Z3A.08 8 weeks gestation of pregnancy | CPT/HCPCS: 83020; 83021; 85660; 86592; 86703; 86704; 86706; 86762; 86787; 86803; 86850; 87086; 87340 ==

== ENCOUNTER 2024-12-12 08:19 | Outpatient (CLI) | payer OTHER, SELFPAY ==
--- NOTE | 2024-12-12 08:15 | CRLHL7_ITS ---
For Patients: As a result of the Century Cures Act, medical imaging exams and procedure reports are released immediately into your electronic medical record. You may view this report before your referring provider. If you have questions, please contact your health care provider. OB ULTRASOUND INDICATION: Nine-week ultrasound for history of early loss. TECHNIQUE: Real time grayscale imaging of the fetus was performed. Transvaginal. Transvaginal imaging performed to better demonstrate the endometrium and ovaries. LMP: 10/09/2024. VANESSA by LMP: 07/16/2025. GA: 9 w, 1 d. Previous US: Yes 12/03/2024. VANESSA by US: 07/21/2025. GA: 7 w, 1 d. CRL: 1.87 cm. 8 w 3 d. VANESSA: 07/21/2025. FHR: 169 BPM. Gestational sac: 3.52 cm. Appears within normal limits. Yolk sac: 2.98 mm. Appears within normal limits. Right ovary: 3.5 x 3.1 x 3.5 cm. CL. Left ovary: 2.1 x 2.1 x 1.6 cm. IMPRESSION: 1. Single living intrauterine measures 8 weeks 3 days with sonographic due date 07/21/2025. 2. Inferior subchorionic hemorrhage measures 10 x 8 x15 mm. 3. Right ovary cyst measures 2.9 x 2.4 x 3.2 cm. Carson Walker M.D. Diagnostic Radiologist [email or web address] CAROLINE/basilio richmond/Dictated by: Carson Walker MD @ 12/12/2024 10:13:00 AM (Electronically Signed)
== END 2024-12-12 08:20 | disposition home or self-care (01) ==
LOC: US 08:20
PROVIDERS: PCP Nurse Practitioner Family; Visit Provider Physician Assistant
DX: O09.291 Supervision of pregnancy with other poor reproductive or obstetric history, first trimester (principal); Z3A.09 9 weeks gestation of pregnancy
CPT/HCPCS: 76817

== ENCOUNTER 2025-03-05 11:07 | Outpatient (CLI) | payer OTHER, SELFPAY ==
--- NOTE | 2025-03-05 11:15 | CRLHL7_ITS ---
For Patients: As a result of the 21st Century Cures Act, medical imaging exams and procedure reports are released immediately into your electronic medical record. You may view this report before your referring provider. If you have questions, please contact your health care provider. ULTRASOUND OB PELVIS OB ANATOMY LMP: 10/09/2024. VANESSA by LMP: 07/16/2025. GA: 21w, 0d. Single. INDICATION: Supervision of normal . CERVIX: Visualized. Transabdominal. Measurement: 4.3. POSITIONING: Vertex, oblique, longitudinal, transverse, breech, tessa breech, multiple positions. AMNIOTIC FLUID: 4.6 cm SDP. PLACENTA: Technique: Transabdominal. PLACENTA POSITION: Posterior. DOPPLER: heart rate: 155 bpm. Umbilical artery: 3-vessel cord. Placenta tip to internal os: 4.5 cm. Placental insertion: Central. BIOMETRY: BPD: 4.3 cm. 18w, 6d, <3 percent. HC: 16.9 cm. 19w, 4d, <3 percent. AC: 14.8 cm. 20w, 0d, 16 percent. FL: 3.3 cm. 20w, 3d, 23 percent. FL/AC ratio: 22.63 percent. HC/AC ratio: 1.14. EFW: 333.18 g. Weight: 0 lbs, 12 oz. age by this US: 19w, 6d. VANESSA by this US: 07/24/2025. Percentile by VANESSA: 9.7 percent. SURVEY: Observed Structures Cerebellum: Yes. 2.0 cm; 20w 2d. Cisterna Magna: Yes. 3.0 mm. Nuchal Fold: Yes. 4.0 mm. Lateral Ventricle: Yes. 6.3 mm. CSP: Yes. Midline Falx: Yes. Choroid Plexus: Yes. Spine: Yes. Stomach: Yes. Abd Cord Insertion: Yes. Urinary Bladder: Yes. Kidneys: Yes. Diaphragm: Yes. Nose/lips: Yes. Orbital view: Yes. Profile: Yes. Upper Extremities: Yes. Lower Extremities: Yes. Hands: Yes. Feet: Yes. Four-Chamber Heart: Yes. LVOT: Yes. RVOT: Yes. 3VV: Yes. 3VTV: Yes. IMPRESSION: 1. Sonographic gestational age 19 weeks 6 days and sonographic due date 07/24/2025. Sonographic age is 8 days behind the clinical age. 2. Estimated weight 10th percentile. Abdominal circumference 16th percentile. 3. BPD and HC both less than 3rd percentile. 4. Umbilical artery Doppler evaluation performed. SD ratio is 3.7, considered normal for this gestational age. 5. Normal anatomic survey. Carson Walker M.D. Diagnostic Radiologist [email or web address] bM/Dictated by: Carson Walker MD @ 03/05/2025 3:50:00 PM (Electronically Signed)
== END 2025-03-05 11:08 | disposition home or self-care (01) ==
LOC: US 11:07
PROVIDERS: PCP Nurse Practitioner Family; Visit Provider Obstetrics & Gynecology
DX: O36.5920 Maternal care for other known or suspected poor fetal growth, second trimester, not applicable or unspecified (principal); Z3A.19 19 weeks gestation of pregnancy
CPT/HCPCS: 76805; 76820